=== PATIENT | female | born 1950 | race Caucasian/White ===

== ENCOUNTER 2018-02-28 02:10 | Emergency (ER) | payer MEDICARE, OTHER, SELFPAY ==
[2018-02-28 02:13] VITALS: BP 112/83; PULSE 78; RESP 15; TEMP 36.8; O2SAT 97; BMI 27.4
[2018-02-28 02:27] VITALS: BP 112/83; PULSE 83; RESP 15; TEMP 36.8; O2SAT 97
--- NOTE | 2018-02-28 02:37 | RAD_ITS ---
STUDY: X-RAY CHEST REASON FOR EXAM: Female, 67 years old. Cough TECHNIQUE: PA and lateral views of the chest. COMPARISON: None. FINDINGS: The lungs are clear and expanded. There is no demonstrated pleural abnormality. Normal size heart. Normal mediastinum and keila. Normal visualized pulmonary arteries. There is atherosclerotic calcification of the aortic arch . There is S-shaped scoliosis of the thoracolumbar spine with diffuse degenerative change. Normal visualized ribs, clavicles, and shoulders. There is no demonstrated abnormality of the visualized soft tissue structures of the upper abdomen. RAD/Chest PA and Lateral IMPRESSION: No evidence of acute cardiopulmonary disease. Electronically Signed: Tesfaye Jones MD at 3:35 EST Tel , Service support ,
--- NOTE | 2018-02-28 02:38 | ED.VIS.GEN ---
History of Present Illness Chief Complaint: General Illness Informant: Patient Onset: Days - 10 Context: Gradual Onset - About 3 days after a [place] [employer] party that she attended, with other attendees becoming sick and similar timeframe Quality: Occasionally productive cough of clear sputum Location: Chest Current Severity: Moderate Maximum Severity: Moderate Worsened by: Nothing Relieved by: Nothing but just started Tessalon Perles today Associated Symptoms: Nausea/vomiting tonight Narrative: Patient was evaluated via telemedicine by [facility] physician earlier today and prescribed Tessalon Perles. However she started vomiting tonight. She feels very fatigued, having some sinus drainage, she is swallowing a lot of mucus. She denies any diarrhea or problems urinating. Her appetite is poor but she is drinking fluids. No sore throat or earache or fevers or dyspnea. She has no history of pulmonary pathology. - Past Medical History (1) Postmenopausal related mood disorder Status: Chronic Past Medical History - Allergies and Home Meds Allergies/Adverse Reactions: Allergies No Known Allergies Allergy (Verified 02/28/18 02:11) Primary Care Physician: Kingsley Romo MD [Primary Care Provider] - 3-5 Days if not improving Lives: Alone Smoking Status: Never smoker Review of Systems General: Reports: Malaise. Denies: Chills, Fever, Sweats Eyes: Denies: Visual changes - bilaterally, Diplopia ENT: Reports: Rhinorrhea. Denies: Bilateral ear pain, Sore throat Cardiovascular: Denies: Chest pain, Palpitations Respiratory: Reports: Cough, Sputum. Denies: Dyspnea, Dyspnea on exertion Gastrointestinal: Reports: Nausea, Vomiting. Denies: Abdominal pain, Diarrhea, Melena, Hematochezia Genitourinary: Denies: Dysuria, Hematuria, Frequency Musculoskeletal: Denies: Neck pain, Back pain, Swelling, Extremity Pain Skin: Denies: Rash, Wounds Neurological: Denies: Headache, Weakness, Numbness Physical Exam Vital Signs/Narrative: Vital Signs Temp Pulse Resp BP Pulse Ox 02/28/18 02:27 98.3 F 83 15 112/83 H 97 02/28/18 02:13 98.3 F 78 15 112/83 H 97 Inital Vital Signs reviewed: Yes General: Well nourished, Well developed Head: Normocephalic, Atraumatic Eyes: Perrl, EOMI ENT: Moist mucous membranes, No rhinorrhea, TM's clear, - - POP clear Neck: Supple, Nontender, No lymphadenopathy Cardiovascular: Regular rate, Regular rhythm, No murmurs, Normal S1, Normal S2 Respiratory: No distress, CTA bilaterally, Chest nontender, - - occasional bronchitic cough Abdomen: Soft, Nontender, Nondistended, Normal bowel sounds Back: Nontender, Normal Inspection. Negative for: CVA tenderness Extremities: Nontender, No edema Skin: Normal color, No rash Neurological: Alert, Oriented x3, Cranial nerves II-XII grossly intact, Normal Strength, Normal Sensation Psychological: Normal affect Diagnostic/Tx/Re-eval Clinical Impression(s) from Imaging Studies Chest X-Ray 02/28/18 02:37 IMPRESSION: No evidence of acute cardiopulmonary disease. Electronically Signed: Tesfaye Jones MD at 3:35 EST Tel , Service support , - Medical Decision Making Chest x-ray is normal. I reassured patient. She likely has a viral syndrome given her history, but if she goes past 2 weeks and still has no improvement, I recommend reevaluation with her PCP. For now I recommend taking the Tessalon Perles she was prescribed and adding dayQuil and/or NyQuil to it as needed for her symptoms. She is comfortable with that plan. She was given Zofran here which helped her nausea, and prescribed some to use at home as needed. I suspect her nausea and vomiting is due to swallowing lots of mucus. ED Disposition - Plan for ED Patient: Disposition: Home or Assisted Living Chief Complaint: General Illness Diagnosis: Acute bronchitis Instructions: Acute Bronchitis Prescriptions: Ondansetron [Zofran Odt] 4 - 8 mg PO Q8H PRN PRN #10 tab PRN Reason: Nausea Referrals: Kingsley Romo MD [Primary Care Provider] - 3-5 Days if not improving
--- NOTE | 2018-02-28 02:41 | ED.DCSUM_ITS ---
History of Present Illness Chief Complaint: General Illness Informant: Patient Onset: Days - 10 Context: Gradual Onset - About 3 days after a [place] [employer] that she attended, with other attendees becoming sick and similar timeframe Quality: Occasionally productive cough of clear sputum Location: Chest Current Severity: Moderate Maximum Severity: Moderate Worsened by: Nothing Relieved by: Nothing but just started Tessalon Perles today Associated Symptoms: Nausea/vomiting tonight Narrative: Patient was evaluated via telemedicine by [facility] physician earlier today and prescribed Tessalon Perles. However she started vomiting tonight. She feels very fatigued, having some sinus drainage, she is swallowing a lot of mucus. She denies any diarrhea or problems urinating. Her appetite is poor but she is drinking fluids. No sore throat or earache or fevers or dyspnea. She has no history of pulmonary pathology. - Past Medical History (1) Postmenopausal related mood disorder Status: Chronic Past Medical History - Allergies and Home Meds Allergies/Adverse Reactions: Allergies No Known Allergies Allergy (Verified 02/28/18 02:11) Primary Care Physician: Kingsley Romo MD [Primary Care Provider] - 3-5 Days if not improving Lives: Alone Smoking Status: Never smoker Review of Systems General: Reports: Malaise. Denies: Chills, Fever, Sweats Eyes: Denies: Visual changes - bilaterally, Diplopia ENT: Reports: Rhinorrhea. Denies: Bilateral ear pain, Sore throat Cardiovascular: Denies: Chest pain, Palpitations Respiratory: Reports: Cough, Sputum. Denies: Dyspnea, Dyspnea on exertion Gastrointestinal: Reports: Nausea, Vomiting. Denies: Abdominal pain, Diarrhea, Melena, Hematochezia Genitourinary: Denies: Dysuria, Hematuria, Frequency Musculoskeletal: Denies: Neck pain, Back pain, Swelling, Extremity Pain Skin: Denies: Rash, Wounds Neurological: Denies: Headache, Weakness, Numbness Physical Exam Vital Signs/Narrative: Vital Signs Temp Pulse Resp BP Pulse Ox 02/28/18 02:27 98.3 F 83 15 112/83 H 97 02/28/18 02:13 98.3 F 78 15 112/83 H 97 Inital Vital Signs reviewed: Yes General: Well nourished, Well developed Head: Normocephalic, Atraumatic Eyes: Perrl, EOMI ENT: Moist mucous membranes, No rhinorrhea, TM's clear, - - POP clear Neck: Supple, Nontender, No lymphadenopathy Cardiovascular: Regular rate, Regular rhythm, No murmurs, Normal S1, Normal S2 Respiratory: No distress, CTA bilaterally, Chest nontender, - - occasional bronchitic cough Abdomen: Soft, Nontender, Nondistended, Normal bowel sounds Back: Nontender, Normal Inspection. Negative for: CVA tenderness Extremities: Nontender, No edema Skin: Normal color, No rash Neurological: Alert, Oriented x3, Cranial nerves II-XII grossly intact, Normal Strength, Normal Sensation Psychological: Normal affect Diagnostic/Tx/Re-eval Clinical Impression(s) from Imaging Studies Chest X-Ray 02/28/18 02:37 IMPRESSION: No evidence of acute cardiopulmonary disease. Electronically Signed: Tesfaye Jones MD at 3:35 EST Tel , Service support , - Medical Decision Making Chest x-ray is normal. I reassured patient. She likely has a viral syndrome given her history, but if she goes past 2 weeks and still has no improvement, I recommend reevaluation with her PCP. For now I recommend taking the Tessalon Perles she was prescribed and adding dayQuil and/or NyQuil to it as needed for her symptoms. She is comfortable with that plan. She was given Zofran here which helped her nausea, and prescribed some to use at home as needed. I suspect her nausea and vomiting is due to swallowing lots of mucus. ED Disposition - Plan for ED Patient: Disposition: Home or Assisted Living Chief Complaint: General Illness Diagnosis: Acute bronchitis Instructions: Acute Bronchitis Prescriptions: Ondansetron [Zofran Odt] 4 - 8 mg PO Q8H PRN PRN #10 tab PRN Reason: Nausea Referrals: Kingsley Romo MD [Primary Care Provider] - 3-5 Days if not improving
[2018-02-28] MEDS: Ondansetron 8 MG Tablet PO (03:10)
[2018-02-28 04:10] VITALS: BP 141/74; PULSE 81; RESP 16; O2SAT 94
== END 2018-02-28 04:11 | disposition home or self-care (01) ==
PROVIDERS: Emergency Provider Emergency Medicine; Family Provider Family Medicine; PCP Family Medicine
DX: J20.9 Acute bronchitis, unspecified (principal); N95.8 Other specified menopausal and perimenopausal disorders
CPT/HCPCS: 71046; 99283

== ENCOUNTER 2020-06-01 15:07 | Emergency (ER) | payer MEDICARE, OTHER, SELFPAY ==
[2020-06-01 15:10] VITALS: BP 139/75; PULSE 83; RESP 18; TEMP 35.4; O2SAT 98; BMI 27.8
--- NOTE | 2020-06-01 15:30 | ED.DCSUM_ITS ---
- ER Visit Summary Date of Service: 06/01/20 Chief Complaint: Low back pain History of Present Illness: The patient is a 70 F who presents with low back pain that began yesterday. Patient states it began gradually but yesterday she was going up a step when it became severe. Patient describes the pain is c onstant aching but sharp at times. Patient states pain is in her right lower lumbar area. Patient states it radiates down her right leg. Patient states her pain is worse with sitting. Patient states she took a Zanaflex and ibuprofen last night which helped somewhat. Patient admits to some decreased sensation in her right leg. Patient denies any weakness. Patient denies any abdominal pain. Patient denies any bowel or bladder incontinence. Physical Examination: Vital signs are stable. Patient is afebrile. Patient is in no acute distress. Musculoskeletal exam reveals tenderness and spasm of the right lumbar paraspinal muscles. There is no midline tenderness. There is no bony crepitance or step-off. There is tenderness over the right sciatic notch. Deep tendon reflexes were 2/4 bilaterally in the lower extremities. Strength is 5/5 bilaterally in the lower extremities. There is some slight decreased sensation to light touch over the lateral aspect of the right thigh and lower leg as well as the medial aspect of her right lower leg. Sensation is intact and equal bilaterally in the feet and medial thighs. Test Results: X-rays of the lumbar spine were obtained. There are 2 views. On my interpretation, there is moderate degenerative changes. There is no acute spondylolisthesis or spondylolysis. There is a mild compression deformity of L2 of undetermined age. Radiologist also interpreted the x-ray and agrees. Emergency Department Course and Treatment: Patient was given a dose of prednisone and morphine here. Patient was feeling better on reevaluation. Patient was given a prescription for prednisone and [place]. Patient was instructed to follow-up with her primary care physician in 5 to 7 days. Patient instructed use ice to the area. Patient was given a note for work. Patient understood and was agreeable with the plan. All questions were answered. Disposition: Discharge home Impression: 1. Sciatica This note was generated with [employer] software. It may contain incorrect words, spelling, and punctuation that were not noted in review of the chart prior to signing ED Disposition - Plan for ED Patient: Disposition: Home or Assisted Living Diagnosis: Sciatica Instructions: ED Sciatica Prescriptions: Hydrocodone Bitart/Apap 5-325 [[place] 5MG-325MG] 1 tablet PO Q6H PRN PRN 3 Days #10 tablet PRN Reason: Pain Transmission Status: Received by [id number] predniSONE tablet 60 mg PO DAILY #12 tab Transmission Status: Pending to [id number] Referrals: Kingsley Romo MD [Primary Care Provider] - 3-5 Days
[2020-06-01] MEDS: predniSONE 20 MG Tablet 60 MG PO (15:40)
[2020-06-01] MEDS: Morphine 4 MG/ML Syringe IM (15:43)
--- NOTE | 2020-06-01 15:58 | RAD_ITS ---
STUDY: X-RAY - LUMBAR SPINE REASON FOR EXAM: Female, 70 years old. Injury. Pain. Numbness in the entire right leg. TECHNIQUE: 2 view(s) of the lumbar spine were obtained. COMPARISON: None FINDINGS: Normal lumbar lordosis. There is a mild dextroscoliosis with convexity at L3. There is a normal alignment of the vertebrae. There is a minimal compression deformity of superior endplate of L2 is approximately 15% loss of vertebral axial height. The remainder the vertebral axial planes are maintained. There is endplate spondylosis at multiple levels. There is multi-level degenerative disc disease with multi-level disc space narrowing. The soft tissue structures are unremarkable. RAD/Lumbar Spine 2 or 3 Views IMPRESSION: 1. Age-indeterminate compression deformity of the superior endplate of L2. 2. Mild degenerative changes and scoliosis. Electronically Signed: Parrish Coronado DO at 16:29 EDT Tel [phone], Service support ,
[2020-06-01 16:56] VITALS: PULSE 80; RESP 15; O2SAT 98
== END 2020-06-01 16:57 | disposition home or self-care (01) ==
PROVIDERS: Emergency Provider Emergency Medicine; PCP Family Medicine
DX: M54.30 Sciatica, unspecified side (principal)
CPT/HCPCS: 72100; 96372; 99282